=== PATIENT | male | born 1985 | race Caucasian/White ===

== ENCOUNTER 2019-12-08 15:27 | Inpatient (IN) | payer MEDICAID, SELFPAY ==
[2019-12-08 15:38] VITALS: BP 132/70; PULSE 76; RESP 18; TEMP 36.5; O2SAT 99; BMI 25.0
[2019-12-08 18:21] LABS: Basophils % 0.4 %; Eosinophils # 0.2 10^3/uL (0.0-0.8); Eosinophils % 2.2 %; Hematocrit 46.9 % (42.0-52.0); Hemoglobin 14.8 g/dL (11.7-16.6); Lymphocytes # 2.5 10^3/uL (0.8-4.8); Mean Corpuscular HGB Conc 31.6 g/dL (30.0-36.0); Mean Corpuscular Hemoglobin 29.7 pg (28.0-34.0); Mean Corpuscular Volume 94.2 fL (80-94); Mean Platelet Volume 10.1 fL (7.4-10.4); Monocytes # 0.5 10^3/uL (0.2-0.9); Monocytes % 4.5 %; Neutrophils # 6.77 10^3/uL (1.8-7.7); Neutrophils % 67.8 %; Nucleated Red Blood Cells % 0 %; Platelet Count 236 10^3/cmm (130-400); Red Blood Count 4.98 10^6/uL (4.1-5.3); Red Cell Distribution Width 13.5 % (12.1-15.1)
[2019-12-08 18:49] LABS: Alanine Aminotransferase 12 U/L (0-41); Albumin Level 4.4 g/dL (3.5-5.2); Alkaline Phosphatase 106 IU/L (40-130); Anion Gap 14.9 (5-19); Aspartate Amino Transferase 20 U/L (0-40); Blood Urea Nitrogen 19 mg/dL (6-20); Calcium 9.5 mg/dL (8.5-10.5); Carbon Dioxide 25 mmol/L (22-29); Chloride 104 mmol/L (98-107); Globulin 3.3 g/dL (1.3-4.6); Glomerular Filtration Rate 111.3 mL/min (90-130); Glucose 95 mg/dL (65-115); Osmolality Calculated 292 mOsm/kg (285-295); Potassium 3.9 mmol/L (3.5-5.1); Sodium 140 mmol/L (136-145); Total Bilirubin 0.2 mg/dL (0.15-1.2); Total Protein 7.7 g/dL (6.6-8.7)
[2019-12-08 18:53] LABS: Amphetamines Screen Urine Negative (Negative); Barbiturates Screen Urine Negative (Negative); Benzodiazepines Screen Urine Negative (Negative); Cocaine Screen Urine Negative (Negative); Opiate Screen Urine Negative (Negative); PCP Screen Urine Negative (Negative); THC Screen Urine Negative (Negative)
[2019-12-08 19:02] LABS: Acetaminophen < 5.0 ug/mL (10-30); Alcohol Level < 10 mg/dL (0-10); Salicylate < 0.3 mg/dL (3-10)
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
[2019-12-08 19:39] LABS: Lipase 22 U/L (13-60)
[2019-12-08] MEDS: nicotine 21 mg Patch 1 PATCH TRANSDERMA (19:46)
[2019-12-08 20:29] VITALS: BP 147/70; PULSE 70; RESP 16; O2SAT 99
[2019-12-08] MEDS: nicotine 2 mg Gum BUCCAL (21:18)
[2019-12-08] MEDS: hyDROXYzine 25 mg Capsule 50 MG PO (21:18)
[2019-12-08] MEDS: trazodone 50 mg Tablet PO (21:18)
[2019-12-08 22:00] VITALS: BP 134/76; PULSE 64; RESP 17; TEMP 36.8; O2SAT 99
[2019-12-09 06:00] VITALS: BP 113/63; PULSE 64; RESP 14; TEMP 36.7; O2SAT 97
[2019-12-09] MEDS: buPROPion XL (24 HR) 150 mg Tablet PO (06:26)
[2019-12-09] MEDS: nicotine 2 mg Gum BUCCAL (07:35)
[2019-12-09] MEDS: OLANZapine 5 mg TABLET 2.5 MG PO (08:18)
[2019-12-09] MEDS: nicotine 21 mg Patch 1 PATCH TRANSDERMA (08:18)
[2019-12-09] MEDS: benztropine 1 mg Tablet PO (08:19)
[2019-12-09 13:40] VITALS: BP 106/66; PULSE 62; RESP 18; TEMP 36.4; O2SAT 98
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
[2019-12-09 20:05] VITALS: BP 111/69; PULSE 66; RESP 14; TEMP 36.9; O2SAT 98
[2019-12-09] MEDS: acetaminophen 325 mg Tablet 650 MG PO (20:06)
[2019-12-09] MEDS: hyDROXYzine 25 mg Capsule 50 MG PO (20:06)
[2019-12-09] MEDS: trazodone 50 mg Tablet PO ×2 (20:07→21:11)
[2019-12-09 21:59] VITALS: PULSE 68; RESP 18; O2SAT 97
--- NOTE | 2019-12-09 22:19 | PC.NURSE ---
ASSESSMENT PHYSICAL ASSESSMENT UNREMARKABLE. PT WAS SLEEPING AND AWOKE WITHOUT ANY S/S OF ANGER TOWARD STAFF. HE IS CALM, QUIET, COOPERATIVE AT THIS TIME. PT REPORTS BACK PAIN IN HIS LOWER BACK BUT DID NOT WANT MEDICATION AT THIS TIME. MEDICATION NURSE JACKY NOTIFIED. PT DENIES ANXIETY, DENIES AH/VH AT THIS TIME. DENIES SI/HI AT THIS TIME. PT SPOKE WITH DR CASTRO VIA TELEHEALTH THIS EVENING. PT IS CALM AND RESTING AT THIS TIME.
[2019-12-10 05:20] VITALS: BP 103/63; PULSE 62; RESP 16; TEMP 36.4; O2SAT 98
[2019-12-10] MEDS: buPROPion XL (24 HR) 150 mg Tablet PO (05:57)
[2019-12-10] MEDS: OLANZapine 5 mg TABLET 2.5 MG PO (07:36)
[2019-12-10] MEDS: nicotine 21 mg Patch 1 PATCH TRANSDERMA (07:37)
[2019-12-10] MEDS: benztropine 1 mg Tablet PO (07:37)
[2019-12-10 14:00] VITALS: BP 112/76; PULSE 77; RESP 18; TEMP 36.9; O2SAT 98
[2019-12-10] MEDS: nicotine 2 mg Gum BUCCAL (16:19)
--- NOTE | 2019-12-10 18:55 | PM.NPN ---
Subjective NPU Subjective: Interval history: Krunal presents today reporting that he is doing well on the Wellbutrin but we see an early desire to restart an antipsychotic due to the voices that he is hearing. We discussed the risks, benefits and alternatives of initiating Abilify and he understood and agreed to proceed as is documented in this note. We agreed to start looking at aftercare with the treatment team tomorrow. He reports that he is eating okay but sleep has been difficult with the voices. Mental Status Exam MSE Comments: This is a well-nourished, well-developed male with adequate dress grooming and eye contact. No abnormal movements except for mild psychomotor retardation. Cooperative with exam in no acute distress. Speech was normal rate and volume. Mood described as depressed, affect congruent. Thought process organized. Thought content: Patient denied any suicidal or homicidal ideation, endorsed paranoia but no delusions were noted, he denied any visual hallucinations but did endorse auditory hallucinations. Attention and concentration were intact and memory was mostly reliable but none were formally tested. He is alert and oriented x3. Insight and judgment were fair. Vitals/I&O/Wt Last Vital Signs Temp 98.5 F 12/10/19 14:00 Pulse 77 12/10/19 14:00 Resp 18 12/10/19 14:00 BP 112/76 12/10/19 14:00 Pulse Ox 98 12/10/19 14:00 Data NPU : 12/08/19 17:48 12/08/19 17:48 A&P Additional A&P Information (1) Psychosis: (2) Depression: This a 34-year-old male with reports of psychosis and depression with previous history of treatment who presents today reporting a desire to restart his treatment. 1. Continue current medication. We will start Abilify 10 mg daily. 2. Every 15 minute checks for safety. 3. Encourage individual, group and milieu therapy. 4. Work with social work team to figure out appropriate discharge planning. Involuntary Hold Information 96 Hour Hold: 96 Hour Involuntary Admission: No Attestations NPU Medical Necessity Statement*: Inpatient hospitalization is medically necessary and the clinically appropriate intervention at this time. We will monitor medications and make changes as indicated. Likely length of stay 2-4 days. Coding Level of Care Code Acute Manufacturing Engineer Assembly for Eliecer Smith
[2019-12-10 19:36] VITALS: BP 105/68; PULSE 55; RESP 17; TEMP 36.9; O2SAT 98
[2019-12-10] MEDS: ARIPiprazole 10 mg Tablet PO (20:51)
[2019-12-10] MEDS: OLANZapine 5 mg ODT PO (20:51)
[2019-12-10] MEDS: trazodone 50 mg Tablet PO (20:52)
--- NOTE | 2019-12-10 20:52 | PC.NURSE ---
Pt reports seeing shadow figures that look like people that he can not make out. He states that it is frightening at times. He reports vivid dreams with the use of the nicotine patch. Pt reports hearing a voice clearly calling his name. He just can not seem to locate the source. He also states that the voice goes away while he is resting in his room but comes back if he is in the dayroom with others.
[2019-12-10 21:07] VITALS: PULSE 81; RESP 18; O2SAT 97
[2019-12-11 06:00] VITALS: BP 119/81; PULSE 59; RESP 16; TEMP 36.5; O2SAT 97
[2019-12-11] MEDS: ARIPiprazole 10 mg Tablet PO (08:54)
[2019-12-11] MEDS: nicotine 21 mg Patch 1 PATCH TRANSDERMA (08:54)
[2019-12-11] MEDS: OLANZapine 5 mg TABLET 2.5 MG PO (08:54)
[2019-12-11] MEDS: buPROPion XL (24 HR) 150 mg Tablet PO (08:54)
[2019-12-11] MEDS: benztropine 1 mg Tablet PO (08:55)
[2019-12-11 11:35] VITALS: PULSE 100; RESP 16; O2SAT 97
[2019-12-11] MEDS: albuterol 8 gm MDI 2 PUFF INHALATION (11:35)
[2019-12-11 14:00] VITALS: BP 130/70; PULSE 76; RESP 20; TEMP 36.6; O2SAT 99
--- NOTE | 2019-12-11 15:48 | P.PN_ITS ---
Subjective NPU Subjective: Interval history: Krunal today reporting that he is feeling a little better day by day. Clearly after getting a couple doses of the Abilify he is thinking more clearly and able to have more reasonable conversation. We discussed the risk benefits and alternatives of him having the Abilify injection tomorrow and he understood and agreed to proceed as documented in this note. We discussed having resources available to allow him to have appropriate follow-up and maintenance of the Abilify injection which he has done in the past. He reports that he is eating fine and starting to sleep a little better. Mental Status Exam MSE Comments: This is a well-nourished, well-developed -[place] male with adequate dress grooming and improving eye contact. No abnormal movements except for mild psychomotor retardation. Cooperative with exam in no acute distress. Speech was normal rate and volume. Mood described as a little better, affect congruent. Thought process organized. Thought content: Patient denied any suicidal or homicidal ideation, endorsed paranoia but no delusions were noted, he denied any visual hallucinations but did endorse auditory hallucinations. Attention and concentration were intact and memory was mostly reliable but none were formally tested. He is alert and oriented x3. Insight and judgment were fair. Vitals/I&O/Wt Last Vital Signs Temp 98.2 F 12/11/19 20:55 Pulse 77 12/11/19 20:55 Resp 16 12/11/19 20:55 BP 113/68 12/11/19 20:55 Pulse Ox 96 12/11/19 20:55 Data NPU : 12/08/19 17:48 12/08/19 17:48 Involuntary Hold Information 96 Hour Hold: 96 Hour Involuntary Admission: No Attestations NPU Medical Necessity Statement*: Inpatient hospitalization is medically necessary and the clinically appropriate intervention at this time. We will monitor medications and make changes as indicated. Likely length of stay 1-3 days. Coding Level of Care Code Acute Upkeep Mechanic for Eliecer Smith
[2019-12-11 20:02] VITALS: PULSE 77; RESP 20; O2SAT 98
[2019-12-11 20:55] VITALS: BP 113/68; PULSE 77; RESP 16; TEMP 36.8; O2SAT 96
--- NOTE | 2019-12-11 21:17 | PC.NURSE ---
PT DENIES HI/SI. REPORTS AH-VOICES THAT HE IS NOT ABLE TO UNDERSTAND, BUT HE SAYS THESE VOICES ARE DISAPPEARING SOME. THEY ARE LESS NOISY AND DONT CALL MY NAME NOW. PT REPORTS NEW TACTILE DISTURBANCES. HE STATED SOMETHING IS SITTING ON MY LEGS WHEN I FIRST TRY TO GO TO SLEEP AND THE LIGHTS ARE OUT. SOMETHING FEELS LIKE IT COMES AND SITS ON MY BED AND I CAN FEEL SOMETHING LOOKING AT ME AND IT FREAKS ME OUT. PATIENT IS COOPERATIVE WITH STAFF BUT REPORTS FEELING ANXIOUS WHEN OUT IN THE DAYROOM. HE SAYS THAT THIS IS WHEN HE BEGINS TO HEAR THE VOICES THE MOST. HE SAYS, THE ABILIFY SEEMS TO BE WORKING FOR ME. THINGS ARE GETTING BETTER, I FEEL MORE LIKE MYSELF. HE IS SMILING AND CHATTY FOR THE FIRST TIME WITH ME
[2019-12-11] MEDS: trazodone 50 mg Tablet PO (22:00)
[2019-12-12 06:00] VITALS: BP 121/72; PULSE 59; RESP 15; TEMP 36.5; O2SAT 97
[2019-12-12] MEDS: nicotine 2 mg Gum BUCCAL ×2 (06:16→21:52)
[2019-12-12] MEDS: ARIPiprazole 10 mg Tablet PO (09:02)
[2019-12-12] MEDS: buPROPion XL (24 HR) 150 mg Tablet PO (09:02)
[2019-12-12] MEDS: nicotine 21 mg Patch 1 PATCH TRANSDERMA (09:03)
[2019-12-12] MEDS: OLANZapine 5 mg TABLET 2.5 MG PO (09:03)
[2019-12-12] MEDS: benztropine 1 mg Tablet PO (09:10)
[2019-12-12] MEDS: albuterol 8 gm MDI 2 PUFF INHALATION (09:24)
[2019-12-12 09:26] VITALS: PULSE 80; RESP 18; O2SAT 98
[2019-12-12] MEDS: ARIPiprazole Maintena 400 MG IM (10:41)
[2019-12-12 14:00] VITALS: BP 133/83; PULSE 90; RESP 20; TEMP 36.6; O2SAT 98
--- NOTE | 2019-12-12 17:10 | PM.NPN ---
Subjective NPU Subjective: Interval history: Krunal presents today reporting that he did receive that shot earlier today. He is optimistic that things will continue to improve as they have. He continues to report some difficulties with sleep and he was advised that the trazodone is available in a higher dose, but that also he is able to ask for a second dose. Otherwise he reported continuing to work with the social work team towards discharge planning. He continues to be optimistic about his ability to succeed with his mental health well managed. Mental Status Exam MSE Comments: This is a well-nourished, well-developed -Welsh male with adequate dress grooming and improving eye contact. No abnormal movements except for mild psychomotor retardation. Cooperative with exam in no acute distress. Speech was normal rate and volume. Mood described as better except for the sleep problems, affect congruent. Thought process organized. Thought content: Patient denied any suicidal or homicidal ideation, endorsed paranoia but no delusions were noted, he denied any visual hallucinations but did endorse auditory hallucinations. Attention and concentration were intact and memory was mostly reliable but none were formally tested. He is alert and oriented x3. Insight and judgment were fair. Vitals/I&O/Wt Last Vital Signs Temp 98.2 F 12/12/19 22:00 Pulse 75 12/12/19 22:00 Resp 17 12/12/19 22:00 BP 147/80 12/12/19 22:00 Pulse Ox 94 12/12/19 22:00 12/12/19 12/12/19 12/13/19 14:59 22:59 06:59 Intake Total 360 / 360 Balance 360 / 360 Data NPU : 12/08/19 17:48 12/08/19 17:48 A&P Additional A&P Information (1) Psychosis: (2) Depression: This a 34-year-old male with reports of psychosis and depression with previous history of treatment who presents today reporting a desire to restart his treatment. 1. Continue current medication. Tolerated the Abilify Maintena injection 400 mg IM and will continue oral dosing for 2 weeks. 2. Every 15 minute checks for safety. 3. Encourage individual, group and milieu therapy. 4. Work with social work team to figure out appropriate discharge planning. Involuntary Hold Information 96 Hour Hold: 96 Hour Involuntary Admission: No Attestations NPU Medical Necessity Statement*: Inpatient hospitalization is medically necessary and the clinically appropriate intervention at this time. We will monitor medications and make changes as indicated. Likely length of stay 1-3 days. Coding Level of Care Code Acute General Handling Supervisor for Eliecer Smith
[2019-12-12 21:10] VITALS: PULSE 80; RESP 18; O2SAT 97
[2019-12-12] MEDS: trazodone 50 mg Tablet PO (21:51)
[2019-12-12 22:00] VITALS: BP 147/80; PULSE 75; RESP 17; TEMP 36.8; O2SAT 94
[2019-12-13 06:00] VITALS: BP 103/70; PULSE 85; RESP 18; TEMP 36.6; O2SAT 97
[2019-12-13] MEDS: nicotine 21 mg Patch 1 PATCH TRANSDERMA (07:43)
[2019-12-13] MEDS: benztropine 1 mg Tablet PO (07:44)
[2019-12-13] MEDS: ARIPiprazole 10 mg Tablet PO (07:45)
[2019-12-13] MEDS: OLANZapine 5 mg TABLET 2.5 MG PO (07:45)
[2019-12-13] MEDS: buPROPion XL (24 HR) 150 mg Tablet PO (07:45)
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
[2019-12-13 12:35] VITALS: BP 103/70; PULSE 85; RESP 18; TEMP 36.6; O2SAT 97
== END 2019-12-13 12:43 | disposition home or self-care (01) | DRG 885 ==
LOC: ER 19:32 → NP 19:36
PROVIDERS: Emergency Medicine; Nurse Practitioner Family; Admitting Provider Psychiatry & Neurology Psychiatry; Emergency Provider Emergency Medicine; Visit Provider Psychiatry & Neurology Psychiatry
DX: F25.0 Schizoaffective disorder, bipolar type (principal); F29 Unspecified psychosis not due to a substance or known physiological condition; Z91.14 Patient's other noncompliance with medication regimen; G89.29 Other chronic pain; M54.5 Low back pain
CPT/HCPCS: 12345; 36415; 80053; 80306; 80307; 83690; 85025; 94640; 96372; 99282; J3535